=== PATIENT | male | born 1970 | race African-American/Black ===

== ENCOUNTER 2021-03-21 23:51 | Emergency (ER) | payer SELFPAY ==
[~2021-03-21] VITALS: Ht 185.4 cm; Wt 93.2 kg
[2021-03-21 23:57] VITALS: Ht 185.4 cm; Wt 93.2 kg
[2021-03-22 00:53] LABS: BASOPHILS 0.4 % (0-2); EOSINOPHILS 2.8 % (0-7); HEMATOCRIT 40.7 % (42.0-54.0); HEMOGLOBIN 13.3 g/dL (13.5-17.5); IMMATURE GRANULOCYTES 0.4 % (0-5); LYMPHOCYTE ABS# 1.15 10x3/uL (1.32-3.57); LYMPHOCYTES 15.3 % (15-50); MCH 28.7 pg (26.0-34.0); MCHC 32.7 g/dL (31.0-37.0); MCV 87.7 fL (80.0-100.0); MEAN PLATELET VOLUME 9.5 fL (7.4-10.4); MONOCYTES 10.1 % (2-11); NEUTROPHIL ABS# 5.36 10x3/uL (1.78-5.38); RBC 4.64 10x6/uL (4.20-6.10); WBC 7.5 10x3/uL (4.8-10.8)
[2021-03-22 00:54] LABS: PLATELET COUNT 427 10x3/uL (130-400)
[2021-03-22 00:55] LABS: ANION GAP 14.4 mmol/L (8-16); CALCIUM 9.6 mg/dL (8.5-10.1); CARBON DIOXIDE 28.2 mmol/L (21.0-32.0); CREATININE - SERUM 1.3 mg/dL (0.6-1.3); POTASSIUM - SERUM 3.6 mmol/L (3.5-5.1)
[2021-03-22 01:01] LABS: ALBUMIN 3.2 g/dL (3.4-5.0); BILIRUBIN - TOTAL 0.35 mg/dL (0.2-1.3); C-REACTIVE PROTEIN 3.1 mg/dL (0.0-0.9); PROTEIN - SERUM 7.9 g/dL (6.4-8.2)
[2021-03-22] MEDS ORDERED: DOXYCYCLINE HY100 M2 PO (04:26)
[2021-03-22 04:34] VITALS: BP 149/81
== END 2021-03-22 04:34 | disposition home or self-care (01) ==
LOC: D.ER 23:51
PROVIDERS: Family Medicine
DX: E11.9 Type 2 diabetes mellitus without complications (principal); L03.115 Cellulitis of right lower limb